=== PATIENT | male | born 1990 | race Hispanic/Latino ===

== ENCOUNTER 2019-04-04 09:53 | Emergency (ER) | payer SELFPAY ==
--- NOTE | 2019-04-04 10:58 | ER ---
Nurse's Notes [facility] Name: Jose Miguel Denise Jr Age: 28 yrs Sex: Male : 1990 Arrival Date: 04/04/2019 Time: 09:55 Bed 12 Private MD: Diagnosis: Fracture of lower leg, including ankle-avulsion distal tibia Presentation: 04/04 09:57 Presenting complaint: Patient states: "I twisted my left ankle going down a stair today sv before work and they sent me home." c/o swelling. Transition of care: patient was not received from another setting of care. Onset of symptoms was April 04, 2019. Risk Assessment: Do you want to hurt yourself or someone else? Patient reports no desire to harm self or others. Initial Sepsis Screen: Does the patient meet any 2 criteria? No. Patient's initial sepsis screen is negative. Does the patient have a suspected source of infection? No. Patient's initial sepsis screen is negative. Care prior to arrival: None. 09:57 Method Of Arrival: Ambulatory sv 09:57 Acuity: DAVID 4 sv Historical: - Allergies: 09:58 No Known Allergies; sv - PMHx: 09:58 None; sv - PSHx: 09:58 None; sv - Immunization history:: Adult Immunizations up to date. - Social history:: Smoking status: Patient uses tobacco products, denies chronic smoking, but will smoke occasionally. - Ebola Screening: : No symptoms or risks identified at this time. - Family history:: not pertinent. Screenin:18 Abuse screen: Denies threats or abuse. Denies injuries from another. Nutritional ss screening: No deficits noted. Tuberculosis screening: Never had TB. Fall Risk None identified. Assessment: 10:15 General: Appears in no apparent distress. comfortable, Behavior is calm, cooperative, ss Denies fever, feeling ill, fatigue, chills. Pain: Complains of pain in L ankle Pain currently is 2 out of 10 on a pain scale. Neuro: Level of Consciousness is awake, alert, obeys commands, Oriented to person, place, time, situation. Cardiovascular: Pulses are palpable in right radial artery, right dorsalis pedis artery, left radial artery and left dorsalis pedis artery. Respiratory: Airway is patent Respiratory effort is even, unlabored, Respiratory pattern is regular, symmetrical. GI: No signs and/or symptoms were reported involving the gastrointestinal system. EENT: Oral mucosa is moist. Derm: Skin is intact, is healthy with good turgor, Skin is pink, warm \\T\\ dry. normal. Musculoskeletal: Circulation, motion, and sensation intact. Range of motion: intact in all extremities, Swelling absent. 10:18 Reassessment: ICE pack applied to L ankle. Patient is grateful. Awaiting XRAY to be obtained. Vital Signs: 09:59 BP 132 / 84; Pulse 79; Resp 16; Temp 98; Pulse Ox 100% ; Weight 108.86 kg; Height 5 ft. sv 9 in. (175.26 cm); Pain 2/10; 09:59 Body Mass Index 35.44 (108.86 kg, 175.26 cm) sv ED Course: 09:55 Patient arrived in ED. as 09:58 Triage completed. sv 09:59 Arm band placed on. sv 10:01 Joseph Null MD is Attending Physician. espinoza 10:18 Patient has correct armband on for positive identification. Bed in low position. Call ss light in reach. 10:18 No provider procedures requiring assistance completed. ss 10:34 X-ray completed. Portable x-ray completed in exam room. Patient tolerated procedure sw well. 10:35 Ankle Left 3 View XRAY In Process Unspecified. EDMS 10:37 Joann Lux RN is Primary Nurse. 10:56 Hilario Murphy MD is Referral Physician. espinoza 11:12 Patient did not have IV access during this emergency room visit. 3D boot applied to ss WALKING BOOT (short) applied to L leg. Administered Medications: 11:09 Drug: Motrin 600 mg Route: PO; 11:15 Follow up: Response: Medication administered at discharge. Outcome: 10:57 Discharge ordered by . espinoza 11:12 Discharged to home ambulatory. 11:12 Condition: good 11:12 Discharge instructions given to patient, Instructed on discharge instructions, follow up and referral plans. Demonstrated understanding of instructions, follow-up care. 11:16 Patient left the ED. Signatures: Dispatcher [employer] Lo Olivier RN RN Joseph Null MD MD cha Martinez, Amelia as Joann Lux RN RN Carlee Mccollum
--- NOTE | 2019-04-04 10:58 | EDPHYS ---
Physician Documentation [facility] Name: Jose Miguel Denise Jr Age: 28 yrs Sex: Male : 1990 Arrival Date: 04/04/2019 Time: 09:55 Bed 12 Private MD: ED Physician Joseph Null HPI: 04/04 10:51 This 28 yrs old Male presents to ER via Ambulatory with complaints of Ankle espinoza Injury. 10:51 The patient presents with decreased range of motion, pain, swelling, tenderness. The espinoza complaints affect the left ankle. Onset: The symptoms/episode began/occurred this morning, today. Context: The problem was sustained at work, resulted from a mis-step by the patient, on a curb, The mechanism of injury involved inversion of the affected ankle. The patient can partially bear weight on the affected extremity. Historical: - Allergies: 09:58 No Known Allergies; sv - PMHx: :58 None; sv - PSHx: :58 None; sv - Immunization history:: Adult Immunizations up to date. - Social history:: Smoking status: Patient uses tobacco products, denies chronic smoking, but will smoke occasionally. - Ebola Screening: : No symptoms or risks identified at this time. - Family history:: not pertinent. ROS: 10:51 Constitutional: Negative for fever, chills, and weight loss, Eyes: Negative for injury, espinoza pain, redness, and discharge, ENT: Negative for injury, pain, and discharge, Neck: Negative for injury, pain, and swelling, Cardiovascular: Negative for chest pain, palpitations, and edema, Respiratory: Negative for shortness of breath, cough, wheezing, and pleuritic chest pain, Abdomen/GI: Negative for abdominal pain, nausea, vomiting, diarrhea, and constipation, Back: Negative for injury and pain, : Negative for injury, bleeding, discharge, and swelling, Skin: Negative for injury, rash, and discoloration, Neuro: Negative for headache, weakness, numbness, tingling, and seizure, Psych: Negative for depression, anxiety, suicide ideation, homicidal ideation, and hallucinations, Allergy/Immunology: Negative for hives, rash, and allergies, Endocrine: Negative for neck swelling, polydipsia, polyuria, polyphagia, and marked weight changes. 10:51 MS/extremity: Positive for decreased range of motion, pain, swelling, tenderness, of the left lateral ankle. Exam: 10:51 Constitutional: This is a well developed, well nourished patient who is awake, alert, espinoza and in no acute distress. Head/Face: Normocephalic, atraumatic. Eyes: Pupils equal round and reactive to light, extra-ocular motions intact. Lids and lashes normal. Conjunctiva and sclera are non-icteric and not injected. Cornea within normal limits. Periorbital areas with no swelling, redness, or edema. ENT: Nares patent. No nasal discharge, no septal abnormalities noted. Tympanic membranes are normal and external auditory canals are clear. Oropharynx with no redness, swelling, or masses, exudates, or evidence of obstruction, uvula midline. Mucous membranes moist. Neck: Trachea midline, no thyromegaly or masses palpated, and no cervical lymphadenopathy. Supple, full range of motion without nuchal rigidity, or vertebral point tenderness. No Meningismus. Chest/axilla: Normal chest wall appearance and motion. Nontender with no deformity. No lesions are appreciated. Cardiovascular: Regular rate and rhythm with a normal S1 and S2. No gallops, murmurs, or rubs. Normal PMI, no JVD. No pulse deficits. Respiratory: Lungs have equal breath sounds bilaterally, clear to auscultation and percussion. No rales, rhonchi or wheezes noted. No increased work of breathing, no retractions or nasal flaring. Abdomen/GI: Soft, non-tender, with normal bowel sounds. No distension or tympany. No guarding or rebound. No evidence of tenderness throughout. Back: No spinal tenderness. No costovertebral tenderness. Full range of motion. Male : Normal genitalia with no discharge or lesions. Skin: Warm, dry with normal turgor. Normal color with no rashes, no lesions, and no evidence of cellulitis. Neuro: Awake and alert, GCS 15, oriented to person, place, time, and situation. Cranial nerves II-XII grossly intact. Motor strength 5/5 in all extremities. Sensory grossly intact. Cerebellar exam normal. Normal gait. Psych: Awake, alert, with orientation to person, place and time. Behavior, mood, and affect are within normal limits. 10:51 Musculoskeletal/extremity: Extremities: noted in the left lateral ankle: decreased ROM, pain, swelling, tenderness, ROM: limited active range of motion, limited passive range of motion, Circulation is intact in all extremities. Sensation intact. Compartment Syndrome exam of affected extremity: is normal. Weight bearing: can bear weight with assistance only, uses crutches, DVT Exam: negative Homans' sign noted on exam, no appreciated bluish discoloration, no erythema, no increased warmth, pain, swelling, tenderness. Vital Signs: 09:59 BP 132 / 84; Pulse 79; Resp 16; Temp 98; Pulse Ox 100% ; Weight 108.86 kg; Height 5 ft. sv 9 in. (175.26 cm); Pain 2/10; 09:59 Body Mass Index 35.44 (108.86 kg, 175.26 cm) sv MDM: 10:01 Patient medically screened. [facility] 10:55 Data reviewed: vital signs, nurses notes, radiologic studies, plain films. [facility] 04/04 10:02 Order name: Ankle Left 3 View XRAY [facility] 04/04 10:02 Order name: Ice pack; Complete Time: 10:08 [facility] 04/04 10:51 Order name: Walking boot; Complete Time: 10:59 [facility] Administered Medications: 11:09 Drug: Motrin 600 mg Route: PO; 11:15 Follow up: Response: Medication administered at discharge. Disposition: 04/04/19 10:57 Discharged to Home. Impression: Fracture of lower leg, including ankle - avulsion distal tibia. - Condition is Stable. - Discharge Instructions: Ankle Fracture, Ankle Fracture, [id number]. - Prescriptions for Ibuprofen 600 mg Oral Tablet - take 1 tablet by ORAL route every 6 hours As needed take with food; 20 tablet. Tylenol- Codeine #3 300-30 mg Oral Tablet - take 2 tablet by ORAL route every 6 hours As needed; 30 tablet. - Medication Reconciliation Form, Thank You Letter, Antibiotic Education, Prescription Opioid Use, Work release form form. - Follow up: Private Physician; When: 2 - 3 days; Reason: Recheck today's complaints, Continuance of care, Re-evaluation by your physician. Follow up: Hilario Murphy MD; When: 1 - 2 days; Reason: Recheck today's complaints, Continuance of care, Re-evaluation by your physician. - Problem is new. - Symptoms have improved. Signatures: Dispatcher [employer] EDMS Maco, Lo, RN RN Joseph Soares MD MD cha Smirch, Shelby, RN RN ss Corrections: (The following items were deleted from the chart) 10:57 10:57 04/04/2019 10:57 Discharged to Home. Impression: Fracture of lower leg, including espinoza ankle. Condition is Stable. Forms are Medication Reconciliation Form, Thank You Letter, Antibiotic Education, Prescription Opioid Use. Follow up: Private Physician; When: 2 - 3 days; Reason: Recheck today's complaints, Continuance of care, Re-evaluation by your physician. Follow up: Dr. Hilario Murphy; When: 1 - 2 days; Reason: Recheck today's complaints, Continuance of care, Re-evaluation by your physician. Problem is new. Symptoms have improved. espinoza 11:16 10:57 04/04/2019 10:57 Discharged to Home. Impression: Fracture of lower leg, including ss ankle - avulsion distal tibia. Condition is Stable. Forms are Medication Reconciliation Form, Thank You Letter, Antibiotic Education, Prescription Opioid Use. Follow up: Private Physician; When: 2 - 3 days; Reason: Recheck today's complaints, Continuance of care, Re-evaluation by your physician. Follow up: Dr. Hilario Murphy; When: 1 - 2 days; Reason: Recheck today's complaints, Continuance of care, Re-evaluation by your physician. Problem is new. Symptoms have improved. espinoza
--- NOTE | 2019-04-04 11:06 | RAD REPORT ---
EXAM DESCRIPTION: RAD - Ankle Left 3 View - 04/04/2019 10:35 am CLINICAL HISTORY: Fall down stairs, twisting injury COMPARISON: None. FINDINGS: Small bone avulsion is present from the tip of the medial malleolus. Patient has substanti al soft tissue swelling along the lateral aspect of the ankle. Patient may have had and inversion and eversion injury. No lateral side ankle fracture is seen. Correlation is needed with any medial ankle pain symptoms. Base of the fifth metatarsal is intact. Ankle mortise is normal. No joint effusion se en. No joint space narrowing. IMPRESSION: Prominent lateral soft tissue swelling with no fibula or lateral side fracture changes s een. Small avulsion from the tip of the medial malleolus. Correlation is needed for pain symptoms in this region.
[2019-04-04] MEDS ORDERED: IBUPROFEN 200 MG TAB PO ONE (11:09)
== END 2019-04-04 11:16 | disposition home or self-care (01) ==
LOC: ER 09:53
DX: S82.302A Unspecified fracture of lower end of left tibia, initial encounter for closed fracture (principal); W18.09XA Striking against other object with subsequent fall, initial encounter; Y93.01 Activity, walking, marching and hiking; Y92.89 Other specified places as the place of occurrence of the external cause; Y99.8 Other external cause status; Z72.0 Tobacco use
CPT/HCPCS: 99283